=== PATIENT | female | born 1960 | race Caucasian/White ===

== ENCOUNTER 2020-10-02 07:47 | Day surgery (SDC) | payer OTHER ==
[~2020-10-02] VITALS: Ht 167.6 cm; Wt 72.3 kg
[~2020-10-02 07:47] MED LIST: CITALOPRAM HBR40 MG PO; FISH OIL 1,0001 EAC3 PO; JOINT HEALTH T1 EACH PO; ONDANSETRON ODT4 MG PO; PROBIOTIC1 EAC1 PO
--- NOTE | 2020-10-02 09:18 | NUR ---
10/02/20 0918 Roma Wood 0912- PT ARRIVES TO PACU ALERT AND TALKING. PT REPORTS NO PAIN OR NAUSEA. PT FALLS TO SLEEP WHEN NOT BEING TALKED TO. RESP EVEN AND UNLABORED. OXYGEN SAT HIGH 90'S TO 100% ON 2L VIA NC.
--- NOTE | 2020-10-03 08:34 | OR ---
[facility] [address] [place], [place] [address] Signed DATE OF OPERATION: 10/02/2020 SURGEON: Jewels Diaz MD PREOPERATIVE DIAGNOSES: 1. Unremarkable colonoscopy in 2012 at age 51. 2. Lifelong chronic constipation, diarrhea, gas, bloating, and lower abdominal pain. 3. Question irritable bowel syndrome. POSTOPERATIVE DIAGNOSES: 1. Minimal sigmoid diverticulosis. 2. Minimal to moderate internal hemorrhoids. PROCEDURE: Colonoscopy with random cold biopsies. ESTIMATED BLOOD LOSS: None. INDICATIONS: Stephanie is a 60-year-old female, asked to see me for a followup colonoscopy. She had a negative screening colonoscopy at age 51 in 2011. She also describes lifelong chronic constipation, diarrhea, gas, bloating, and lower abdominal pain. There is some concern she has irritable bowel syndrome. She had an upper endoscopy this summer with her daycare provider. She has had a previous gastric sleeve 6 years ago. She said the upper endoscopy was fine. She was still having symptoms. Consequently, she was asked to see me for colonoscopy. 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 She is also single mom. She is also bradycardic and has been through evaluation with Dr. Guaman, which has been negative. In the office, I gave her a pamphlet on colonoscopy, we looked at that together along with the risks including, but not limited to gas bloating, crampy abdominal pain, bleeding, perforation requiring surgery, and missed diagnosis. We also discussed the need for IV conscious sedation, she had expressed understanding and wished to proceed. PROCEDURE NOTE: Stephanie was taken into our endoscopy suite and placed in the left lateral decubitus position. She was given a total of 5 mg of Versed and 100 mcg of fentanyl to cover the case. A digital rectal exam was performed and this was unremarkable. The adult colonoscope was introduced and advanced under direct visualization of camera. It took some abdominal compression in order to advance the scope into the cecum itself. Her Electronically Signed By: JEWELS DIAZ MD 10/03/20 0834 PATIENT NAME: STEPHANIE ROLLE OPERATIVE REPORT DATE OF : 62 REPORT #: [id number] PHYSICIAN: JEWELS DIAZ MD PCP: JEREMIE HUERTA PAC REPORT IS CONFIDENTIAL AND NOT TO BE RELEASED WITHOUT AUTHORIZATION [facility] [address] [place] [id number] Signed prep was quite excellent. We could easily see the appendiceal orifice and ileocecal valve. The scope was then slowly withdrawn. We took several biopsies in the colon for pathologic review. However, we saw no inflammatory changes whatsoever. She has extremely minimal sigmoid diverticula. They were quite small, few in number, and scattered about. The rectum was unremarkable. Upon retroflexion of scope, we could see she has minimal to moderate internal hemorrhoid columns. After this, the gas was suctioned out and colonoscope removed. Stephanie tolerated the procedure quite well. RECOMMENDATIONS: I will see Stephanie back in my office in 7 to 14 days to review her results. Jewels Diaz MD ALB/MODL /[id number] cc: TRISTA Lockwood MD Copies: JEWELS DIAZ MD ~ Electronically Signed By: JEWELS DIAZ MD 10/03/20 0834 PATIENT NAME: STEPHANIE ROLLE OPERATIVE REPORT DATE OF : 62 REPORT #: [id number] PHYSICIAN: JEWELS DIAZ MD PCP: JEREMIE HUERTA PAC REPORT IS CONFIDENTIAL AND NOT TO BE RELEASED WITHOUT AUTHORIZATION
--- NOTE | 2020-10-03 11:19 | PATH ---
[facility] [address] [place], [place] [address] Signed SPECIMEN(S): A COLON BIOPSY SPECIMEN SOURCE: A. COLON BIOPSY CLINICAL HISTORY: Colonoscopy with possible biopsy and polypectomy. History of diarrhea, constipation, lower abdominal pain. Post: Diverticulosis, internal hemorrhoids. MICROSCOPIC DESCRIPTION: Histologic sections of all submitted blocks are examined by light microscopy. These findings, together with the gross examination, support the pathologic diagnosis. FINAL PATHOLOGIC DIAGNOSIS: Colon, biopsy: - Colonic mucosa with no histopathologic abnormality. - Negative for active, chronic, or microscopic colitis. - Negative for dysplasia or malignancy. NAL:cml:C2NR GROSS DESCRIPTION: The specimen, labeled "KK, 1," and designated on the requisition "random colon," is received in formalin and consists of two isbell soft tissue fragments that measure 0.3 cm in greatest dimension. The specimen is entirely submitted in cassette (A1). AT (under the direct supervision of a pathologist) The Gross Description was prepared using a voice recognition system. The report was reviewed for accuracy; however, sound-alike word errors, addition and/or deletions may occur. If there is any question about this report, please contact Client Services. PERFORMING LABORATORY: The technical component was performed by [facility], [address] [place] [id number] ([employer] Manager: Ayah Gomez MD; CLIA# [id number]). [facility], [address] [address] (CLIA# [id number]). Diagnostician: Shelby Lopez MD Pathologist PATIENT NAME: STEPHANIE ROLLE PATHOLOGY DATE OF : 62 REPORT #: [id number] PHYSICIAN: [facility] PCP: JEREMIE HUERTA PAC REPORT IS CONFIDENTIAL AND NOT TO BE RELEASED WITHOUT AUTHORIZATION [address] [address] Signed Electronically Signed 10/03/2020 Copies: ~ PATIENT NAME: STEPHANIE ROLLE PATHOLOGY DATE OF : 62 REPORT #: [id number] PHYSICIAN: [facility] PCP: JEREMIE HUERTA PAC REPORT IS CONFIDENTIAL AND NOT TO BE RELEASED WITHOUT AUTHORIZATION
== END 2020-10-02 09:45 | disposition home or self-care (01) ==
LOC: OPS 07:47 → DS 07:47 → OPS 09:30 → DS 09:45 → OPS 09:45
PROVIDERS: ATTEND Colon & Rectal Surgery
PROC: 0DBE8ZX Excision of Large Intestine, Via Natural or Artificial Opening Endoscopic, Diagnostic (ICD-10-PCS; principal; 2020-10-02 09:30)
DX: K57.30 Diverticulosis of large intestine without perforation or abscess without bleeding (principal); K64.8 Other hemorrhoids; F32.9 Major depressive disorder, single episode, unspecified; F17.290 Nicotine dependence, other tobacco product, uncomplicated; Z80.1 Family history of malignant neoplasm of trachea, bronchus and lung; Z80.3 Family history of malignant neoplasm of breast
CPT/HCPCS: 99153; G0500; J2250; J3010; J7121

== ENCOUNTER 2021-08-12 08:00 | Emergency (ER) | payer OTHER ==
[~2021-08-12] VITALS: Ht 167.6 cm; Wt 69.3 kg
[2021-08-12] MEDS ORDERED: VITAMIN D31250 MCG PO (08:22)
--- NOTE | 2021-08-12 13:16 | EKG ---
[facility] [address] [facility] [place], [place] [address] Signed Sinus bradycardia Otherwise normal ECG No previous ECGs available Confirmed by MARIELA NAIR MD ([id number]) on 08/12/2021 1:15:46 PM Electronically Signed By: MARIELA NAIR MD 08/12/21 1316 PATIENT NAME: STEPHANIE ROLLE Electrocardiogram DATE OF : 62 PHYSICIAN: MARIELA NAIR MD REPORT #: [id number] REPORT IS CONFIDENTIAL AND NOT TO BE RELEASED WITHOUT AUTHORIZATION
== END 2021-08-12 10:14 | disposition home or self-care (01) ==
LOC: ED 08:00
DX: S00.81XA Abrasion of other part of head, initial encounter (principal); R55 Syncope and collapse; W10.9XXA Fall (on) (from) unspecified stairs and steps, initial encounter; Y99.0 Civilian activity done for income or pay; Z79.899 Other long term (current) drug therapy
CPT/HCPCS: 70450; 71045; 72125; 73110; 80048; 84484; 85025; 93005; 93010; 99284-25